=== PATIENT | male | born 1965 | race African-American/Black ===

== ENCOUNTER 2025-06-01 17:52 | Emergency (ER) | payer OTHER ==
[~2025-06-01] VITALS: Ht 177.8 cm; Wt 86.2 kg
[~2025-06-01 17:52] MED LIST: AMLO-213 PO; METF-442 PO
[2025-06-01 18:20] LABS: PLATELET COUNT (AUTO) 261 K/uL (150-450); RED BLOOD CELL COUNT(AUTO) 5.37 MIL/uL (4.5-6.0); RED CELL DISTRIBUTION WIDTH 16.1 % (11.5-15.0); WHITE BLOOD COUNT (AUTO) 8.8 K/uL (4.3-11.0)
[2025-06-01 18:32] LABS: CALCIUM, SERUM 8.8 mg/dL (8.5-10.1); CREATININE 1.3 mg/dL (0.6-1.3); SODIUM SERUM 146 mmol/L (136-145); UREA NITROGEN, BLOOD 12 mg/dL (7-18)
[2025-06-01 18:37] VITALS: BP 165/94; TEMP 98.3; O2SAT 99
[2025-06-01 18:37] LABS: ALCOHOL, BLOOD < 3 mg/dL (0-10); ASPARTATE AMINOTRANSFERASE 45 U/L (15-37); TOTAL PROTEIN, SERUM 6.8 g/dL (6.4-8.2)
[2025-06-01] MEDS: IV NS 0.9% 1,000 ML BAG IV ONE (18:41)
[2025-06-01] MEDS ORDERED: THIAMINE HCL 100 MG TABLET ONE (18:42)
[2025-06-01] MEDS: THIAMINE HCL 100 MG TABLET PO ONE (18:44)
[2025-06-01 19:35] LABS: APPEARANCE,URINE SLIGHTLY CLOUDY (CLEAR); BLOOD, URINE NEGATIVE Ery/uL (NEGATIVE); LEUKOCYTE ESTERASE ,URINE NEGATIVE (NEGATIVE); NITRITE, URINE NEGATIVE (NEGATIVE); UGLUCOSE NEGATIVE (NEGATIVE)
[2025-06-01 19:45] LABS: ADD URINE CULTURE NO; SQUAMOUS EPITHELIAL CELL,UR Moderate /HPF (None Seen); URINE AMORPHOUS PHOSPHATES Many /HPF (None Seen)
[2025-06-01 19:49] LABS: BARBITURATE, URINE NEGATIVE (NEGATIVE); BENZODIAZEPINE, URINE NEGATIVE (NEGATIVE); COCCAINE, URINE NEGATIVE (NEGATIVE); OPIATE, URINE NEGATIVE (NEGATIVE)
[2025-06-01 19:52] LABS: AMPHETAMINE, URINE POSITIVE (NEGATIVE); CANNABINOID, URINE POSITIVE (NEGATIVE)
[2025-06-01] MEDS: POTASSIUM CHLORIDE 20 MEQ TAB.PRT.SR PO ONE (20:42)
[2025-06-01] MEDS ORDERED: POTASSIUM CHLORIDE 20 MEQ TAB.PRT.SR PO ONE (20:42)
== END 2025-06-01 22:24 | disposition home or self-care (01) ==
LOC: ER 17:53
DX: R53.1 Weakness (principal); R42 Dizziness and giddiness; R06.00 Dyspnea, unspecified; F15.10 Other stimulant abuse, uncomplicated; E11.9 Type 2 diabetes mellitus without complications; E87.1 Hypo-osmolality and hyponatremia; F12.90 Cannabis use, unspecified, uncomplicated; I10 Essential (primary) hypertension; F19.10 Other psychoactive substance abuse, uncomplicated; Z59.00 Homelessness unspecified; Z79.84 Long term (current) use of oral hypoglycemic drugs; Z20.822 Contact with and (suspected) exposure to COVID-19; Z79.899 Other long term (current) drug therapy
CPT/HCPCS: 99285; 96360; 93005; 71045; 85025; 80048; 80076; 81001; 36415; 84484; 82962; 87426; 80143; 80320; 80307; J7030; G0480